=== PATIENT | female | born 1995 | race Caucasian/White ===

== ENCOUNTER 2016-11-14 07:16 | Inpatient (IN) | payer MEDICAID ==
[~2016-11-14] VITALS: Ht 175.3 cm; Wt 166.0 kg
[~2016-11-14 07:16] MED LIST: LABE100 PO; LORTA5 PO; PRENTAB50 PO
[2016-11-14 08:06] LABS: BASOPHIL # 0.1 TH/MM3 (0-0.2); BASOPHIL % 0.5 % (0.0-2.0); EOSINOPHIL # 0.1 TH/MM3 (0-0.4); EOSINOPHIL % 0.9 % (0.0-4.0); HEMATOCRIT 32.8 % (35.0-46.0); HEMO FLAGS DIFF FINAL; LYMPH % 25.1 % (9.0-44.0); LYMPHOCYTE # 2.7 TH/MM3 (1.0-4.8); MEAN CELL VOLUME 75.4 FL (80.0-100.0); MEAN CORPUSCULAR HEMOGLOBIN 24.2 PG (27.0-34.0); MEAN CORPUSCULAR HGB CONC 32.1 % (32.0-36.0); MONO % 7.7 % (0.0-8.0); NEUT % 65.8 % (16.0-70.0); PLATELET COUNT 274 TH/MM3 (150-450); RED BLOOD COUNT 4.35 MIL/MM3 (4.00-5.30); WHITE BLOOD COUNT 10.6 TH/MM3 (4.0-11.0)
[2016-11-14] MEDS ORDERED: LACTATED RINGER'S 1000 ML IV ONE (08:15)
[2016-11-14] MEDS ORDERED: LACTATED RINGER'S 1000 ML IV SCH (08:15)
[2016-11-14 08:19] LABS: BACTERIA, URINE FEW /hpf; BLOOD, URINE NEG (NEG); COMMENT (UR) CULTURE INDICATED; CULTURE IF INDICATED CULTURE INDICATED; GLUCOSE,URINE NEG (NEG); KETONE, URINE NEG (NEG); MUCUS URINE FEW /lpf (OCC); NITRITE,URINE NEG (NEG); PH, URINE 6.5 (5.0-8.5); SQUAMOUS EPITHELIAL CELL URINE 31 /hpf (0-5); URINE COLOR YELLOW (YELLW/STRAW)
[2016-11-14] MEDS ORDERED: CITRIC ACID-SODIUM CITRATE LIQ 30 ML UDC PO SCH (08:30)
[2016-11-14] MEDS ORDERED: ceFAZolin 2 GM PREMIX 50 ML IV SCH (08:30)
[2016-11-14] MEDS ORDERED: OXYTOCIN 10 UNIT/ML AMP ONE (08:31)
[2016-11-14] MEDS ORDERED: ACETAMINOPHEN 1000 MG/100 ML 100 ML IV ONE (08:44)
[2016-11-14] MEDS ORDERED: ONDANSETRON HCL 4 MG/2 ML VIAL ONE (08:44)
[2016-11-14] MEDS ORDERED: MORPHINE SULFATE PF 5 MG/10 ML VIAL ONE (08:44)
--- NOTE | 2016-11-14 09:49 | PD.OB.DELI ---
Procedure Note Section Procedure Pre Op Diagnosis: (1) Encounter for female sterilization procedure (2) delivery delivered (3) Morbid obesity Post Op Diagnosis: (1) delivery delivered (2) Encounter for female sterilization procedure Performed by Felipe Manning Procedure: Repeat Low Transverse Sec, Other (BTL) Indication for delivery: Desired elective repeat Previous condition: None Informed consent obtained: For anesthesia, For procedure Confirmed correct: Patient, Procedure, Site, Time-out taken Anesthesia: Spinal Monitoring during procedure: Blood pressure monitoring Urinary catheter: Inserted using sterile technique, To dependent drainage Sterile preparation: Duraprep Operative Features Skin Incision: Pfannenstiel Uterine Incision: Low transverse w/knife / blunt ext Membranes Ruptured: Artificially Presentation: Occiput anterior Delivery date: Nov 14, 2016 Delivery time: 09:16 Delivery of : Assisted (vacuum one pull) : Female, Single One Minute : 8 Five Minute : 9 Status of : Viable Placenta delivered: Intact Estimated blood loss: 500 Procedure tolerated: Well Maternal Condition: Stable Condition: Stable Felipe Manning MD Nov 14, 2016 09:49
[2016-11-14] MEDS ORDERED: OXYTOCIN 30 UNITS-500ML PREMIX 500 ML IV ONE (10:00)
[2016-11-14] MEDS ORDERED: KETOROLAC TROMETHAMINE 60 MG/2 ML (IM) VIAL IM PRN (10:00)
[2016-11-14] MEDS ORDERED: SODIUM CHLORIDE 0.9% FLUSH 10 ML FLUSH IV FLUSH PRN (10:00)
[2016-11-14] MEDS ORDERED: OXYTOCIN 30 UNITS-500ML PREMIX 500 ML ONE (10:30)
[2016-11-14] MEDS ORDERED: EPIDURAL-DO NOT ADMINISTER ANTICOAGULANTS PRN (11:15)
[2016-11-14] MEDS ORDERED: EPIDURAL-DIPHENHYDRAMINE HCL 50 MG/ML VIAL IV PUSH PRN (11:15)
[2016-11-14] MEDS ORDERED: EPIDURAL-NALOXONE HCL 0.4 MG/ML AMP IV PUSH PRN (11:15)
[2016-11-14] MEDS ORDERED: EPIDURAL-NO SYSTEMIC NARCOTICS PRN (11:15)
[2016-11-14] MEDS ORDERED: EPIDURAL-DIPHENHYDRAMINE HCL 50 MG CAP PO PRN (11:15)
--- NOTE | 2016-11-14 12:49 | MP ---
cc: MICHEAL MANNING M.D. DATE OF SURGERY 11/14/2016 PROCEDURE Repeat low transverse section, bilateral tubal ligation. PREOPERATIVE DIAGNOSES 1. Intrauterine at 39 weeks for elective repeat . 2. Desires sterilization. POSTOPERATIVE DIAGNOSIS 1. Intrauterine at 39 weeks for elective repeat . 2. Desires sterilization. PROCEDURE Low transverse section. Bilateral tubal ligation. SURGEON Dr. Micheal Manning. ANESTHESIA Spinal. COMPLICATIONS None. FINDINGS Live female infant, Apgars of 8 and 9. TIME OF DELIVERY 09:15. ESTIMATED BLOOD LOSS 500 cc. FINDINGS Normal female pelvic anatomy, moderate scar tissue. PROCEDURE IN DETAIL After informed consent the patient was taken to the operating room. She was placed under spinal anesthesia, placed in spine position, left lateral tilt. Abdomen, perineum and vagina were prepped and draped in normal sterile fashion after adequate anesthesia was assured and the time-out was taken. A Pfannenstiel skin incision was carried sharply through the old scar to the fascia. The fascia was nicked in the midline, the incision extended laterally using Montgomery scissors. The rectus muscle were dissected off the fascia with sharp dissection with a Bovie and Montgomery scissors. Once the fascia was dissected off, we entered bluntly with a finger, making the incision upward and downward through the rectus muscle midline with sharp dissection secondary to scar tissue. Bladder flap was created by dissecting the bladder off the lower uterine segment and a low transverse uterine incision was then made, carried sharply into the uterine cavity. Clear fluid was noted. The 's head was brought to the incision but despite fundal pressure the head did not deliver so vacuum was applied and with a single pull not exceeding orthotic/prosthetic clinician's recommended pressure we delivered the baby without difficulty. The baby was delivered. The cord was clamped and cut after 45 seconds. The was handed to Pediatrics in attendance. Cord blood was collected. The placenta was delivered manually. The uterus was exteriorized, wiped free from all remaining products of conception. The uterine incision was then closed with running locking stitch of chromic suture. Good hemostasis was achieved. At this point the fallopian tubes were tied bilaterally in a Uriel fashion, the left being tagged. This was all done without difficulty. Good hemostasis was achieved. The uterus was placed back in the abdomen and noted to be hemostatic. The peritoneum was closed with chromic suture. The fascia was closed with Vicryl suture and the subcutaneous tissue was closed with Vicryl suture. The skin was closed with subcuticular stitches. The abdomen was noted to be hemostatic prior to closure. The patient tolerated the procedure well. MD JULY Nguyen/JOVANNY /9:41 AM /12:26 PM
--- NOTE | 2016-11-14 13:55 | HHI.HP ---
HPI Chief Complaint repeat CS at 39 weeks Date Seen: Nov 14, 2016 Time Seen: 08:00 Travel History International Travel<30 Days: No Contact w/Intl Traveler<30Days: No Known Affected Area: No History of Present Illness HPI For CS BTL Weeks Gestation: 39 Para: 1 : 2 Last Menstrual Period: Nov 14, 2016 History Past Medical History Medical History: Denies Significant Hx Past Surgical History Surgical History: No Previous Surgery Family History Family History: Negative Social History Alcohol Use: No Tobacco Use: No Substance Abuse: No Allergies-Medications (Allergen,Severity, Reaction): Coded Allergies: No Known Allergies (Unverified , 10/23/13) Home Meds Active Scripts Labetalol HCl (Trandate 100 mg Tab) 100 Mg Tab, 200 MG PO Q12 for SBP> OR = 180 , DBP> OR = 100, #60 TAB 6 MONTHS Refills Prov:Felipe Manning MD 12/07/13 Hydrocodone/Acetaminophen 5 mg/325 mg (Hydrocodone/Acetaminophen 5 mg/325 mg) 1 Tab Tab, 2 TAB PO Q4H Y for pain, #30 TAB Prov:Felipe Manning MD 12/07/13 Reported Medications Without A Vit W/ Fe F ( Formula A-Free) 1 Tab Tab, 1 TAB PO DAILY, TAB 12/02/13 Review of Systems Except as stated in HPI: all other systems reviewed are Neg Physical Exam Narrative GENERAL: Well-nourished, well-developed patient. SKIN: Warm and dry. HEAD: Normocephalic and atraumatic. EYES: No scleral icterus. No injection or drainage. ENT: No nasal drainage noted. Mucous membranes pink. Airway patent. NECK: Supple, trachea midline. No JVD. Heart RRR lungs CTA. ABDOMEN/GI: Abdomen soft, non-tender, bowel sounds present, no rebound, no guarding Gravid to [-] weeks size Fundal Height: [-] GENITOURINARY: External Genitalia: intact and normal in appearance BUS glands: [-] Cervix: [-] Dilatation: [-] Effacement: [-] Station: [-] Presentation: [-] Membranes: [intact or ruptured] Uterine Contractions: [-] FHT's: Category: [-] Baseline: [-] Reactive: [-] Variability: [-] Decels: [-] EXTREMITIES: No cyanosis or edema. BACK: Nontender without obvious deformity. No CVA tenderness. NEUROLOGICAL: Awake and alert. Motor and sensory grossly within normal limits. Five out of 5 muscle strength in all muscle groups. Normal speech. Caprini VTE Risk Assessment Caprini VTE Risk Assessment: No/Low Risk (score <= 1) Caprini Risk Assessment Model Point Value = 1 Point Value = 2 Point Value = 3 Point Value = 5 Age 41-60 Minor surgery BMI > 25 kg/m2 Swollen legs Varicose veins or History of unexplained or recurrent spontaneous Oral contraceptives or hormone replacement Sepsis (< 1 month) Serious lung disease, including pneumonia (< 1 month) Abnormal pulmonary function Acute myocardial infarction Congestive heart failure (< 1 month) History of inflammatory bowel disease Medical patient at bed rest Age 61-74 Arthroscopic surgery Major open surgery (> 45 min) Laparoscopic surgery (> 45 min) Malignancy Confined to bed (> 72 hours) Immobilizing plaster cast Central venous access Age >= 75 History of VTE Family history of VTE Factor V Leiden Prothrombin [id number] Lupus anticoagulant Anticardiolipin antibodies Elevated serum homocysteine Heparin-induced thrombocytopenia Other congenital or acquired thrombophilia Stroke (< 1 month) Elective arthroplasty Hip, pelvis, or leg fracture Acute spinal cord injury (< 1 month) Prophylaxis Regimen Total Risk Factor Score Risk Level Prophylaxis Regimen 0-1 Low Early ambulation 2 Moderate Order ONE of the following: *Sequential Compression Device (SCD) *Heparin 5000 units SQ BID 3-4 Higher Order ONE of the following medications: *Heparin 5000 units SQ TID *Enoxaparin/Lovenox 40 mg SQ daily (WT < 150 kg, CrCl > 30 mL/min) *Enoxaparin/Lovenox 30 mg SQ daily (WT < 150 kg, CrCl > 10-29 mL/min) *Enoxaparin/Lovenox 30 mg SQ BID (WT < 150 kg, CrCl > 30 mL/min) AND/OR *Sequential Compression Device (SCD) 5 or more Highest Order ONE of the following medications: *Heparin 5000 units SQ TID (Preferred with Epidurals) *Enoxaparin/Lovenox 40 mg SQ daily (WT < 150 kg, CrCl > 30 mL/min) *Enoxaparin/Lovenox 30 mg SQ daily (WT < 150 kg, CrCl > 10-29 mL/min) *Enoxaparin/Lovenox 30 mg SQ BID (WT < 150 kg, CrCl > 30 mL/min) AND *Sequential Compression Device (SCD) Data Data Vital Signs Reviewed: Yes Orders Orders Admit To Inpatient (11/14/16 ) Vital Signs (Adult) .ON ADMISSION (11/14/16 07:31) Activity Oob Ad Margaret (11/14/16 07:31) Heart (11/14/16 07:31) Urinary Catheter Management KEILY.Q8H (11/14/16 07:31) ^ Preps (11/14/16 07:31) Scd / Laron / Foot Pump KEILY.QSHIFT (11/14/16 07:31) ^ Ultrasound For Locatio (11/14/16 07:31) Type And Screen (11/14/16 07:31) Complete Blood Count With Diff (11/14/16 07:31) Urinalysis - C+S If Indicated (11/14/16 07:31) Specimen To Be Collected PRN (11/14/16 07:31) Lactated Ringer's 1000 Ml Inj (Lr 1000 M (11/14/16 08:15) Lactated Ringer's 1000 Ml Inj (Lr 1000 M (11/14/16 08:15) Citric Acid-Sodium Citrate Liq (Bicitra (11/14/16 08:30) Cefazolin 2 Gm Premix (Ancef 2 Gm Premix (11/14/16 08:30) Urine Culture (11/14/16 07:45) Oxytocin Inj (Pitocin Inj) (11/14/16 08:31) Morphine Pf Inj (Duramorph Pf 0.5 Mg/Ml (11/14/16 08:44) Ondansetron Inj (Zofran Inj) (11/14/16 08:44) Acetaminophen 1000 Mg/100 Ml (Ofirmev 10 (11/14/16 08:44) Vital Signs (Adult) Q4HX24,Q12H (11/14/16 09:49) Activity Bed Rest (11/14/16 09:49) ^ Discontinue (11/15/16 09:49) Remove Dressing (11/15/16 09:49) ^ Rhogam (11/14/16 09:49) Lactated Ringer's 1000 Ml Inj (Lr 1000 M (11/14/16 14:49) Oxytocin 30 Units-500ml Premix (Pitocin (11/14/16 10:00) Oxytocin 30 Units-500ml Premix (Pitocin (11/14/16 20:00) Sodium Chloride 0.9% Flush (Ns Flush) (11/14/16 21:00) Sodium Chloride 0.9% Flush (Ns Flush) (11/14/16 10:00) Simethicone Chew (Mylicon Chew) (11/14/16 10:00) Ibuprofen (Motrin) (11/14/16 10:00) Ketorolac Inj (Toradol Inj) (11/14/16 10:00) Oxycodone-Acetamin 5-325 Mg (Percocet (11/14/16 10:00) Oxycodone-Acetamin 5-325 Mg (Percocet (11/14/16 10:00) Cmrtosw-Fsyqs-Huidlag Inj (M-M-R Ii Inj) (11/15/16 16:00) Omrj-Eil-Idxsbc (Booster) Inj (Boostrix (11/15/16 16:00) Complete Blood Count With Diff (11/15/16 06:00) Remove Urinary Catheter .ONCE (11/15/16 09:49) Oxytocin 30 Units-500ml Premix (Pitocin (11/14/16 10:30) [facility] (11/14/16 11:15) Naloxone Inj (Narcan Inj) (11/14/16 11:15) Diphenhydramine Inj (Benadryl Inj) (11/14/16 11:15) Diphenhydramine (Benadryl) (11/14/16 11:15) [facility] (11/14/16 11:15) Acetaminophen 1000 Mg/100 Ml (Ofirmev 10 (11/14/16 17:00) Diet Regular Basic (11/14/16 Lunch) Labs Laboratory Tests Test 11/14/16 07:44 11/14/16 07:45 White Blood Count 10.6 Red Blood Count 4.35 Hemoglobin 10.5 Hematocrit 32.8 Mean Corpuscular Volume 75.4 Mean Corpuscular Hemoglobin 24.2 Mean Corpuscular Hemoglobin Concent 32.1 Red Cell Distribution Width 16.0 Platelet Count 274 Mean Platelet Volume 7.9 Neutrophils (%) (Auto) 65.8 Lymphocytes (%) (Auto) 25.1 Monocytes (%) (Auto) 7.7 Eosinophils (%) (Auto) 0.9 Basophils (%) (Auto) 0.5 Neutrophils # (Auto) 7.0 Lymphocytes # (Auto) 2.7 Monocytes # (Auto) 0.8 Eosinophils # (Auto) 0.1 Basophils # (Auto) 0.1 CBC Comment DIFF FINAL Differential Comment Urine Color YELLOW Urine Turbidity HAZY Urine pH 6.5 Urine Specific [place] 1.018 Urine Protein TRACE Urine Glucose (UA) NEG Urine Ketones NEG Urine Occult Blood NEG Urine Nitrite NEG Urine Bilirubin NEG Urine Urobilinogen LESS THAN 2.0 Urine Leukocyte Esterase LARGE Urine RBC 4 Urine WBC 22 Urine Squamous Epithelial Cells 31 Urine Amorphous Sediment FEW Urine Bacteria FEW Urine Mucus FEW Microscopic Urinalysis Comment CULTURE INDICATED Date/Time Source Procedure Growth Status 11/14/16 07:45 Urine Clean Catch Urine Culture Pending Received Assessment/Plan Problem List: (1) delivery delivered ICD Codes: O82 - Encounter for delivery without indication (2) Encounter for female sterilization procedure ICD Codes: Z30.2 - Encounter for sterilization Felipe Manning MD Nov 14, 2016 13:54
[2016-11-14] MEDS ORDERED: LACTATED RINGER'S 1000 ML INJ 1,000 ML IV SCH (14:49)
[2016-11-14] MEDS: ACETAMINOPHEN 1000 MG/100 ML VIAL IV SCH (16:52)
[2016-11-14] MEDS ORDERED: OXYTOCIN 30 UNITS-500ML PREMIX 500 ML IV PRN (20:00)
[2016-11-14] MEDS ORDERED: SODIUM CHLORIDE 0.9% FLUSH 10 ML FLUSH IV FLUSH SCH (21:00)
[2016-11-15] MEDS: ACETAMINOPHEN 1000 MG/100 ML VIAL IV SCH (01:16)
[2016-11-15] MEDS: oxyCODONE/ACETAMINOPHEN 5 MG/325 MG TAB PO PRN ×3 (05:28→17:13)
--- NOTE | 2016-11-15 07:30 | HHI.OB ---
Subjective Post Day: 1 Remarks doing well POD #1 with pain at incision Objective Objective Remarks GENERAL: Well-nourished, well-developed patient. . ABDOMEN/GI: Abdomen soft, non-tender. bandage dry Fundus: Firm, non-tender at umbilicus. GENITOURINARY: Light to moderate bleeding. EXTREMITIES: No cyanosis or edema, non-tender, without signs of DVT. Medications and IVs Current Medications Medications (Trade) Dose Ordered Sig/Rhonda Route Start Time Stop Time Status Last Admin Lactated Ringer's 1,000 ml @ 150 mls/hr Q6H40M IV 11/14/16 08:15 11/14/16 08:15 (Bicitra Liq) 30 ml VOICE NETWORK ENGINEER PO 11/14/16 08:30 11/17/16 08:29 11/14/16 10:13 Cefazolin Sodium/ Dextrose 50 ml @ 100 mls/hr VOICE NETWORK ENGINEER IV 11/14/16 08:30 11/17/16 08:29 11/14/16 10:12 Lactated Ringer's 1,000 ml @ 100 mls/hr Q10H IV 11/14/16 14:49 11/15/16 10:48 11/15/16 01:16 Oxytocin 500 ml @ 100 mls/hr UNSCH X1 PRN IV 11/14/16 20:00 11/15/16 19:59 11/14/16 16:54 (NS Flush) 2 ml BID IV FLUSH 11/14/16 21:00 11/15/16 01:16 (NS Flush) 2 ml UNSCH PRN IV FLUSH 11/14/16 10:00 (Mylicon Chew) 80 mg QID PRN PO 11/14/16 10:00 (Motrin) 600 mg Q6H PRN PO 11/14/16 10:00 (Toradol Inj) 30 mg Q6H PRN IM 11/14/16 10:00 11/15/16 09:59 (Percocet 5-325 Mg) 1 tab Q4H PRN PO 11/14/16 10:00 (Percocet 5-325 Mg) 2 tab Q4H PRN PO 11/14/16 10:00 11/15/16 05:28 (M-M-R Ii Inj) 0.5 ml ONCE ONCE SQ 11/15/16 16:00 11/15/16 16:01 (Boostrix Inj) 0.5 ml ONCE ONCE IM 11/15/16 16:00 11/15/16 16:01 11/15/16 01:31 Miscellaneous Information NO SYSTEMIC NARCOTICS TO BE GIVEN FO... UNSCH PRN .XX 11/14/16 11:15 11/15/16 08:55 (Narcan Inj) 0.4 mg UNSCH PRN IV PUSH 11/14/16 11:15 11/15/16 08:55 (Benadryl Inj) 25 mg Q6H PRN IV PUSH 11/14/16 11:15 11/15/16 08:55 11/14/16 13:22 (Benadryl) 50 mg Q6H PRN PO 11/14/16 11:15 11/15/16 08:55 Miscellaneous Information ALL NURSING DEPARTMENTS UNSCH PRN .XX 11/14/16 11:15 11/15/16 08:55 Assessment/Plan Problem List: (1) delivery delivered ICD Codes: O82 - Encounter for delivery without indication (2) Encounter for female sterilization procedure ICD Codes: Z30.2 - Encounter for sterilization Discharge Planning Dc home fri or friday Felipe Manning MD Nov 15, 2016 07:30
--- NOTE | 2016-11-15 07:31 | HHI.DCPOC ---
Discharge Care Plan Diagnosis: (1) Encounter for female sterilization procedure (2) delivery delivered Report Symptoms to Your Doctor -Temperature above 100.5 degrees -Redness, of incision or excessive or foul smelling drainage -Unusual pain or calf pain -Increased vaginal bleeding -Painful or difficulty urinating -Feelings of extreme sadness or anxiety after 2 weeks Goals to Promote Your Health * To prevent worsening of your condition and complications * To maintain your health at the optimal level Directions to Meet Your Goals Take your medications as prescribed Follow your dietary instruction Follow activity as directed Ensure plenty of rest for recovery Drink fluids for hydration Keep your appointments as scheduled Take your immunizations and boosters as scheduled If your symptoms worsen call your PCP, if no PCP go to Urgent Care Center or Emergency Room Smoking is Dangerous to Your Health. Avoid second hand smoke Call the 24-hour crisis hotline for domestic abuse at Felipe Manning MD Nov 15, 2016 07:31
[2016-11-15] MEDS ORDERED: OXYC1TAB63 PO (07:32)
[2016-11-15 08:05] LABS: AUTOMATED NEUTROPHIL # 6.8 TH/MM3 (1.8-7.7); BASOPHIL % 0.4 % (0.0-2.0); EOSINOPHIL # 0.1 TH/MM3 (0-0.4); EOSINOPHIL % 1.4 % (0.0-4.0); HEMATOCRIT 30.7 % (35.0-46.0); HEMO FLAGS DIFF FINAL; LYMPH % 22.8 % (9.0-44.0); LYMPHOCYTE # 2.3 TH/MM3 (1.0-4.8); MEAN CORPUSCULAR HEMOGLOBIN 24.3 PG (27.0-34.0); MEAN CORPUSCULAR HGB CONC 32.5 % (32.0-36.0); MONO % 7.1 % (0.0-8.0); NEUT % 68.3 % (16.0-70.0); PLATELET COUNT 244 TH/MM3 (150-450); RED BLOOD COUNT 4.09 MIL/MM3 (4.00-5.30); RED CELL DISTRIBUTION WIDTH 16.2 % (11.6-17.2)
[2016-11-15 08:20] VITALS: BP 115/68; PULSE 85; RESP 16; TEMP 97.9
[2016-11-15] MEDS: IBUPROFEN 600 MG TAB PO PRN ×2 (10:20→17:12)
[2016-11-15] MEDS ORDERED: DIPHTH/TETANUS/ACEL PERTUSSIS (BOOSTER) 0.5 ML VIAL/PFS IM ONE (16:00)
[2016-11-15] MEDS ORDERED: MEASLES, MUMPS, RUBELLA VACCINE 0.5 ML VIAL SQ ONE (16:00)
[2016-11-16] MEDS: IBUPROFEN 600 MG TAB PO PRN ×4 (02:10→20:36)
[2016-11-16] MEDS: oxyCODONE/ACETAMINOPHEN 5 MG/325 MG TAB PO PRN ×4 (02:11→20:35)
[2016-11-16] MEDS: SIMETHICONE 80 MG CHEWABLE TAB PO PRN ×2 (02:17→20:35)
--- NOTE | 2016-11-16 11:14 | HHI.OB ---
Subjective Post Day: 2 Remarks pain controlled, mod lochia, neno po, +void, flatus. needs car seat for baby. Objective Objective Remarks GENERAL: Well-nourished, well-developed patient. . ABDOMEN/GI: Abdomen soft, non-tender. bandage dry Fundus: Firm, non-tender at umbilicus. Incision:C/D/I GENITOURINARY: Light to moderate bleeding. EXTREMITIES: No cyanosis or edema, non-tender, without signs of DVT. Medications and IVs Current Medications Medications (Trade) Dose Ordered Sig/Rhonda Route Start Time Stop Time Status Last Admin Lactated Ringer's 1,000 ml @ 150 mls/hr Q6H40M IV 11/14/16 08:15 11/14/16 08:15 (Bicitra Liq) 30 ml CAGE MANAGER PO 11/14/16 08:30 11/17/16 08:29 11/14/16 10:13 Cefazolin Sodium/ Dextrose 50 ml @ 100 mls/hr CAGE MANAGER IV 11/14/16 08:30 11/17/16 08:29 11/14/16 10:12 (NS Flush) 2 ml BID IV FLUSH 11/14/16 21:00 11/15/16 01:16 (NS Flush) 2 ml UNSCH PRN IV FLUSH 11/14/16 10:00 (Mylicon Chew) 80 mg QID PRN PO 11/14/16 10:00 11/16/16 02:17 (Motrin) 600 mg Q6H PRN PO 11/14/16 10:00 11/16/16 07:55 (Percocet 5-325 Mg) 1 tab Q4H PRN PO 11/14/16 10:00 11/15/16 17:13 (Percocet 5-325 Mg) 2 tab Q4H PRN PO 11/14/16 10:00 11/16/16 07:55 Assessment/Plan Problem List: (1) delivery delivered ICD Codes: O82 - Encounter for delivery without indication Plan: routine pp care (2) Encounter for female sterilization procedure ICD Codes: Z30.2 - Encounter for sterilization Discharge Planning Dc home friday Lalitha Mccracken MD Nov 16, 2016 11:14
[2016-11-17] MEDS: oxyCODONE/ACETAMINOPHEN 5 MG/325 MG TAB PO PRN ×2 (02:35→09:35)
[2016-11-17] MEDS: IBUPROFEN 600 MG TAB PO PRN ×2 (02:35→09:35)
--- NOTE | 2016-11-17 09:10 | HHI.DS ---
Admission Date Nov 14, 2016 at 07:16 Discharge Date: Nov 17, 2016 Admitting Diagnosis IUP@TERM, hx of , undesired fertility Diagnosis: Delivery Date: Nov 14, 2016 : Repeat Infant: Female, Single Brief History For CS BTL Hospital Course pt was admitted for and btl. by pod 3 pt was voiding, passing gas, with good pain control and was stable for d/c home. Pt Condition on Discharge: Stable Discharge Disposition: Discharge Home Discharge Instructions Diet Instructions: As Tolerated, No Restrictions Additional Diet Instructions: Drink at least 8 - 16 oz bottles of water a day Activities You Can Perform: Shower Only-No Bath Activities to Avoid: Prolonged Standing, Strenuous Activity, Sexual Activity Additional Activity Instruc.: No driving until off pain medications Do not lift anything heavier than your baby in an infant carrier Lalitha Mccracken MD Nov 17, 2016 09:10
== END 2016-11-17 14:33 | disposition home or self-care (01) | DRG 766 ==
LOC: H2EB 07:16 → H1EA 11:35
PROVIDERS: ADMIT Obstetrics & Gynecology; ATTEND Obstetrics & Gynecology
PROC: 10D00Z1 Extraction of Products of Conception, Low, Open Approach (ICD-10-PCS; principal; 2016-11-14)
PROC: 0UB70ZZ Excision of Bilateral Fallopian Tubes, Open Approach (ICD-10-PCS; 2016-11-14)
DX: O34.211 Maternal care for low transverse scar from previous cesarean delivery (principal); E66.01 Morbid (severe) obesity due to excess calories; O99.214 Obesity complicating childbirth; Z30.2 Encounter for sterilization; Z37.0 Single live birth; Z3A.39 39 weeks gestation of pregnancy
CPT/HCPCS: 59025; 81001; 85025; 85461; 86850; 86900; 86901; 87086; 88302; 90384; 90715; J0131; J0690; J1200; J2274; J2405; J2590; J2790; J7120